=== PATIENT | male | born 1980 | race Caucasian/White ===

== ENCOUNTER 2019-05-27 11:39 | Emergency (ER) | payer MEDICAID ==
[~2019-05-27] VITALS: Ht 185.4 cm; Wt 104.3 kg
[2019-05-27 11:47] VITALS: BP 122/95
== END 2019-05-27 12:00 | disposition home or self-care (01) ==
LOC: ER 11:49
DX: L03.114 Cellulitis of left upper limb (principal); L98.498 Non-pressure chronic ulcer of skin of other sites with other specified severity

== ENCOUNTER 2019-12-21 22:32 | Emergency (ER) | payer MEDICAID ==
[~2019-12-21] VITALS: Ht 185.4 cm; Wt 113.4 kg
--- NOTE | 2019-12-21 22:42 | NUR ---
[employer] AT BEDSIDE
--- NOTE | 2019-12-21 22:42 | NUR ---
[facility] at bedside.
--- NOTE | 2019-12-21 23:06 | NUR ---
RADIOLOGY AT BEDSIDE
[2019-12-21] MEDS ORDERED: HYDROCODONE/APAP 5/325MG TABLET ONE (23:09)
--- NOTE | 2019-12-21 23:16 | NUR ---
[facility] AT BEDSIDE FOR SPLINT
[2019-12-21] MEDS ORDERED: HYDROCODONE/APAP 5/325MG TABLET PO ONE (23:30)
--- NOTE | 2019-12-22 00:01 | NUR ---
PT PROVIDED WITH CRUTCHES AND SPLINT. VSS. AMBULATED THROUGH E.D. USING CRUTCHES.
--- NOTE | 2019-12-22 00:05 | NUR ---
Patient discharged to home in stable condition. Written and verbal after care instructions given. Patient verbalizes understanding of instruction and RX. Pt ambulated out using crutches. vss. Picked up by .
[2019-12-22 00:25] VITALS: BP 128/76
== END 2019-12-22 00:26 | disposition home or self-care (01) ==
LOC: ER 22:34
DX: S82.392A Other fracture of lower end of left tibia, initial encounter for closed fracture (principal); Y08.89XA Assault by other specified means, initial encounter; Y93.89 Activity, other specified; Y92.89 Other specified places as the place of occurrence of the external cause; Y99.8 Other external cause status
CPT/HCPCS: 73600-TC